=== PATIENT | female | born 1960 | race Caucasian/White ===

== ENCOUNTER 2025-02-09 06:18 | Day surgery (SDC) | payer OTHER, SELFPAY | END 2025-02-09 09:01 | disposition home or self-care (01) | LOC: GI 06:18 | PROVIDERS: ATTENDING PHYSICIAN Internal Medicine Gastroenterology | DX: Z12.11 Encounter for screening for malignant neoplasm of colon (principal); K62.89 Other specified diseases of anus and rectum; K62.1 Rectal polyp | CPT/HCPCS: 45380; 88305 ==